=== PATIENT | female | born 1940 | race Caucasian/White ===

== ENCOUNTER 2020-03-14 10:46 | Emergency (ER) | payer MEDICARE ==
[~2020-03-14] VITALS: Ht 172.7 cm; Wt 50.9 kg
[~2020-03-14 10:46] MED LIST: LISI-167 PO
[2020-03-14 10:48] VITALS: BP 165/72
[2020-03-14] MEDS ORDERED: LIDOCAINE-MPF 1%, 5ML INFIL ONE (11:00)
[2020-03-14] MEDS ORDERED: LIDOCAINE-MPF 1%, 5ML ONE (11:07)
== END 2020-03-14 11:46 | disposition home or self-care (01) ==
LOC: ED 11:19
DX: L03.011 Cellulitis of right finger (principal)
CPT/HCPCS: 10060; 99283